=== PATIENT | female | born 1990 | race Caucasian/White ===

== ENCOUNTER 2017-09-23 11:05 | Emergency (ER) | END 2017-09-23 12:45 | disposition home or self-care (01) ==

== ENCOUNTER 2018-01-17 12:48 | Outpatient (CLI) | END 2018-01-17 14:40 | disposition home or self-care (01) ==

== ENCOUNTER 2018-02-21 13:26 | Outpatient (CLI) | END 2018-02-21 15:08 | disposition home or self-care (01) ==

== ENCOUNTER 2018-03-13 11:07 | Inpatient (IN) | END 2018-03-19 18:45 | disposition home or self-care (01) | DRG 806 ==

== ENCOUNTER 2019-01-31 11:33 | Emergency (ER) | payer MEDICAID ==
[~2019-01-31] VITALS: Ht 165.1 cm; Wt 88.0 kg
[2019-01-31 11:42] VITALS: Ht 165.1 cm; Wt 88.0 kg
[2019-01-31 13:35] VITALS: BP 112/82; PULSE 79; RESP 16
== END 2019-01-31 13:48 | disposition home or self-care (01) ==
LOC: E/R 11:33
DX: R55 Syncope and collapse (principal)
CPT/HCPCS: 36415; 80048; 81025; 85025; 93005; Z7502